=== PATIENT | female | born 1985 | race Native Hawaiian/Other Pacific Islander ===

== ENCOUNTER 2016-06-18 15:20 | Outpatient (CLI) | payer OTHER ==
[~2016-06-18 15:20] MED LIST: AMOX875T8 PO; IBUPROFEN200 MG PO; PAXIL20 MG PO; PREDNISONE50 MG PO; SERT50TA PO
== END 2016-06-18 16:20 | disposition home or self-care (01) ==
LOC: RAD 15:20
DX: M25.531 Pain in right wrist (principal); M79.641 Pain in right hand

== ENCOUNTER 2016-07-24 15:53 | Outpatient (CLI) | payer OTHER | END 2016-07-24 19:10 | disposition home or self-care (01) | LOC: RESP 15:53 | DX: G56.03 Carpal tunnel syndrome, bilateral upper limbs (principal); G56.23 Lesion of ulnar nerve, bilateral upper limbs | CPT/HCPCS: 95911 ==

== ENCOUNTER 2016-11-25 08:33 | Outpatient (CLI) | payer OTHER ==
[2016-11-25 09:05] LABS: PLATELET COUNT 305 K/uL (152-353)
[2016-11-25 09:31] LABS: POTASSIUM 3.5 mmol/L (3.6-5.2); SODIUM 138 mmol/L (136-145)
== END 2016-11-25 09:40 | disposition home or self-care (01) ==
LOC: LABW 08:33
PROVIDERS: Family Medicine
DX: G43.809 Other migraine, not intractable, without status migrainosus (principal); G47.8 Other sleep disorders; R53.83 Other fatigue; G58.8 Other specified mononeuropathies; F41.8 Other specified anxiety disorders; E55.9 Vitamin D deficiency, unspecified; E78.00 Pure hypercholesterolemia, unspecified
CPT/HCPCS: 36415; 80053; 80061; 81000; 82306; 83735; 84439; 84443; 84481; 84550; 85027

== ENCOUNTER 2017-01-13 13:34 | Outpatient (CLI) | payer OTHER | END 2017-01-13 19:09 | disposition home or self-care (01) | LOC: RAD 13:34 | DX: M54.6 Pain in thoracic spine (principal) ==

== ENCOUNTER 2017-09-22 07:39 | Day surgery (SDC) | payer OTHER ==
[~2017-09-22] VITALS: Ht 30.5 cm; Wt 0.5 kg
[2017-09-22 09:08] LABS: PLATELET COUNT 249 K/uL (152-353)
== END 2017-09-22 11:02 | disposition home or self-care (01) ==
LOC: OR 07:39
PROVIDERS: Student in an Organized Health Care Education/Training Program
PROC: 0DJ08ZZ Inspection of Upper Intestinal Tract, Via Natural or Artificial Opening Endoscopic (ICD-10-PCS; principal; 2017-09-22)
DX: R13.19 Other dysphagia (principal)
CPT/HCPCS: 80053; 85027; J2001; J2250; J2704

== ENCOUNTER 2017-09-23 10:00 | Outpatient (CLI) | payer OTHER | END 2017-09-23 20:26 | disposition home or self-care (01) | LOC: RAD 10:00 | DX: M54.12 Radiculopathy, cervical region (principal); M54.6 Pain in thoracic spine ==

== ENCOUNTER 2018-01-20 15:17 | Outpatient (CLI) | payer OTHER | END 2018-01-20 22:24 | disposition home or self-care (01) | LOC: RESP 15:17 | DX: R20.2 Paresthesia of skin (principal) | CPT/HCPCS: 95885; 95911 ==